=== PATIENT | female | born 1945 | race Caucasian/White ===

== ENCOUNTER 2025-07-24 09:17 | Outpatient (CLI) | payer MEDICARE, BC ==
--- NOTE | 2025-07-24 12:40 | RADIOLOGY REPORT ---
INDICATION: UNDERLYING MASS OR RECURRENT PNEUMONIA TECHNIQUE: CT axial images of the chest are obtained without contrast. Coronal and sagittal reformats were obtained. Radiation Dose Information: COMPARISON: None FINDINGS: The trachea is patent. No pneumothorax. No pneumothorax. Bilateral bronchiectasis /cystic bronchiectasis and plugging of the bronchi. Bilateral pulmonary tree-in-bud nodularity. Bilateral atelectasis/consolidation. Right middle lobe 6 mm solid nodule. 7 mm left upper lobe solid nodule. Apical scarring/ atelectatic changes. Heart normal in size. Ascending aorta measures 3.4 x 3.4 cm. No supraclavicular or axillary lymphadenopathy. Left breast calcification measuring 1.2 cm. No aggressive osseous process. Moderate Thoracic degenerative disc disease. IMPRESSION: Limited evaluation without contrast. Bilateral pulmonary bronchiectatic/cystic bronchiectasis, mucous plugging, tree-in-bud nodularity changes which could be secondary to infectious/inflammatory processes including tuberculosis/mycobacterial infection with other considerations including ABPA, aspiration, ciliary dyskinesia. Correlate clinically. Bilateral pulmonary airspace consolidation/scarring /atelectasis. Pulmonary nodules up to 7 mm. Recommend follow-up per Fleischner society criteria. Other findings as described.
== END 2025-07-24 23:59 | disposition home or self-care (01) ==
LOC: RAD 09:17
PROVIDERS: ATTEND Family Medicine
DX: J47.9 Bronchiectasis, uncomplicated (principal); R91.8 Other nonspecific abnormal finding of lung field; J18.9 Pneumonia, unspecified organism; J98.11 Atelectasis; M51.34 Other intervertebral disc degeneration, thoracic region; R92.1 Mammographic calcification found on diagnostic imaging of breast
CPT/HCPCS: 71250